=== PATIENT | female | born 1935 | race Caucasian/White ===

== ENCOUNTER 2018-01-13 17:13 | Emergency (ER) | payer MEDICARE, OTHER ==
[2018-01-13] MEDS: KETOROLAC 30 MG INJ IM (19:26)
== END 2018-01-13 20:43 | disposition home or self-care (01) ==
LOC: FTE 17:13
DX: M54.5 Low back pain (principal); I10 Essential (primary) hypertension
CPT/HCPCS: 72100; 96372; 99284-25